=== PATIENT | male | born 1940 | race Caucasian/White ===

== ENCOUNTER 2020-10-18 20:37 | Emergency (ER) | payer OTHER, BC ==
[~2020-10-18] VITALS: Ht 175.3 cm; Wt 79.4 kg
[2020-10-18 21:24] LABS: ABSOLUTE NEUTROPHILS 4.9 thou/uL (1.4-8.2); BASOPHILS 0.3 % (0.0-2.0); EOSINOPHILS 1.1 % (0.0-3.0); MCH 32.8 pg (26.0-34.0); MCHC 33.2 g/dL (28.0-37.0); MCV 98.7 fL (80.0-100.0); MONOCYTES 7.2 % (1.0-8.0); PLATELET COUNT 160 thou/uL (150-400); POLYS 73.4 % (36.0-66.0); RBC 4.56 mil/uL (4.50-6.00); RDW 13.8 % (10.5-14.5); WBC 6.7 thou/uL (4.0-11.0)
[2020-10-18] MEDS ORDERED: RASAGILINE MESYL1 MG PO (21:24)
[2020-10-18] MEDS ORDERED: RAMIPRIL10 MG PO (21:24)
[2020-10-18] MEDS ORDERED: CARBIDOPA-LEVO1 EAC9 PO (21:24)
[2020-10-18] MEDS ORDERED: PRAVACHOL40 MG PO (21:24)
[2020-10-18] MEDS ORDERED: ASA81BEC PO (21:25)
[2020-10-18 21:29] LABS: CALCIUM 8.7 mg/dL (8.5-10.1); CREATININE 1.4 mg/dL (0.7-1.3); POTASSIUM 4.3 mmol/L (3.5-5.1)
[2020-10-18 21:31] LABS: INR 1.05; PROTIME 11.4 Seconds (9.3-11.4)
[2020-10-18 21:36] LABS: ALBUMIN 3.8 g/dL (3.4-5.0); TOTAL BILIRUBIN 0.4 mg/dL (0.2-1.0); TOTAL PROTEIN 6.8 g/dL (6.4-8.2)
[2020-10-18 22:02] LABS: URINE BILIRUBIN NEGATIVE (Negative); URINE BLOOD NEGATIVE (Negative); URINE CLARITY CLEAR; URINE COLOR YELLOW; URINE GLUCOSE-RANDOM* NEGATIVE (Negative); URINE KETONES TRACE (Negative); URINE LEUKOCYTES-REFLEX NEGATIVE (Negative); URINE NITRITE-REFLEX NEGATIVE (Negative); URINE PROTEIN (DIPSTICK) NEGATIVE (Negative); URINE SPECIFIC GRAVITY 1.025 (1.005-1.035); URINE UROBILINOGEN 0.2 E.U./dl (0.2-1.0)
[2020-10-18 22:13] VITALS: BP 157/88
--- NOTE | 2020-10-19 11:14 | EKG ---
[address] [address] ELECTROCARDIOGRAM REPORT Name: ESHA PEÑA [id number] Admission: 10/18/20 Attend Phys: Discharge: 10/18/20 Date of : 44 Report #: [id number] [facility] ED Test Date: 2020-10-18 Test Time: 20:53:03 Pat Name: ESHA PEÑA Department: Room: Gender: Reel Fed Printer: ZIYAD : 1940 Requested By: Yusuf Mendoza Order Number: [id number] MD: Andrea Owens Measurements Intervals Independence Rate: 83 P: 62 [place]: 181 QRS: 48 QRSD: 100 T: 32 QT: 367 QTc: 432 Interpretive Statements Sinus rhythm No significant abnormality No previous ECG available for comparison Electronically Signed On 10-19-2020 11:14:28 CDT by Andrea Owens [email or web address] <ELECTRONICALLY SIGNED> By: Andrea Owens MD, [facility] 10/19/20 [id number] Andrea Owens MD, FACC /EPI
== END 2020-10-18 22:19 | disposition home or self-care (01) ==
LOC: ER 20:37
PROVIDERS: Emergency Medicine
DX: S01.112A Laceration without foreign body of left eyelid and periocular area, initial encounter (principal); Z79.899 Other long term (current) drug therapy; W18.39XA Other fall on same level, initial encounter; Y93.89 Activity, other specified; Y92.89 Other specified places as the place of occurrence of the external cause; Y99.8 Other external cause status